=== PATIENT | female | born 1990 | race Asian ===

== ENCOUNTER → 2021-08-31 09:17 | Outpatient (BNVA) | payer OTHER, SELFPAY | PROVIDERS: PCP Internal Medicine; Visit Provider Advanced Practice Midwife | DX: N92.6 Irregular menstruation, unspecified (principal) | CPT/HCPCS: 99212 ==

== ENCOUNTER 2023-05-22 08:50 | Outpatient (AMB) | payer OTHER, SELFPAY ==
[2023-05-22 08:53] VITALS: BP 122/80; PULSE 86; O2SAT 96; BMI 23.7
--- NOTE | 2023-05-22 08:53 | A.OFFPC_ITS ---
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 Accompanied by: Self / Same As Patient Allergies No Known Allergies Allergy (Verified 05/22/23 09:23) Medication List - Last Reconciled 05/22/23 by Chavez Nash MD No Known Home Meds Tobacco use date assessed: 05/22/23 Dental Screening Dental Screen Date: 05/22/23 Did you have a dental visit in the last 12 months?: Yes Did you have a dental problem in the last 6 months where you did not have access to dental care?: No Was dental information given to patient?: Patient has dentist HPI 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 Re-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 Care / Request PE HPI Details Patient comes in today for her annual physical examination and to reestablish care - has not been back since 2018 States that she moved to [place] for a few years and recently decided to move back here to [facility] States that she has been doing well over the years and there has been no significant change to her health and physical condition Recalls that she last had her annual gynecology exam and pap smear done sometime in September 2022 although it looks like she [facility], per her records Relates that she's had some stomach discomfort and nausea for the past couple of days and also has had some mild diarrhea lately - thinks that she may have eaten something recently that did not agree with her but notes that her symptoms felt a lot better this morning and her diarrhea seems to have stopped She denies any headaches or dizziness Denies any chest pains, no SOB No vomiting, no abdominal pain and she denies any acute urinary symptoms PFSH Medical History Pure hypercholesterolemia Surgical History No pertinent past surgical history Social History Housing: House Patient Tobacco Use Status: Never used Tobacco e-Cigarette/Vaping Use: Never Used service: No Current occupational status: employed Current occupational exposures/hazards: No Cognitive needs: No Hearing needs: No Vision needs: No Female Reproductive History Menstrual Age of Menarche: 9 Questionnaire PHQ-9 Over the last 2 weeks, how often have you been bothered by any of the following problems? 1. Little interest or pleasure in doing things: not at all 2. Feeling down, depressed, or hopeless: not at all 3. Trouble falling or staying asleep, or sleeping too much: not at all 4. Feeling tired or having little energy: not at all 5. Poor appetite or overeating: not at all 6. Feeling bad about yourself - or that you are a failure or have let yourself or your family down: not at all 7. Trouble concentrating on things, such as reading the newspaper or watching television: not at all 8. Moving or speaking so slowly that other people could have noticed. Or the opposite - being so fidgety or restless that you have been moving around a lot more than usual: not at all 9. Thoughts that you would be better off or of hurting yourself in some way: not at all Total score: 0 Depression Screening Interpretation: Negative Depression Screening Done: Yes 51551 - PHQ-9 Billing: Yes Source: Developed by Drs. Dakota Ogden, Debi Connolly, Ismael Clarke and colleagues, with an educational tash from [employer]. Thrive Questionnaire Date Thrive assessed: 05/22/23 I am a: Patient What is your living situation today?: I have a steady place to live Within the past 12 months, did the food you bought not last and you didn't have the money to get more?: Never true Within the past 12 months, did you worry whether your food would run out before you got money to buy more?: Never true Do you have trouble paying for medicines?: No Do you have trouble getting transportation to medical appointments?: No Do you have trouble paying your heating and electricity bill?: No Do you have trouble taking care of your child, family member or friend?: No Do you have trouble with day-to-day activities such as bathing, preparing meals, shopping, managing finances, etc.?: No Are you currently unemployed and looking for a job?: No Are you interested in more education?: No Please select the resources that you would like help with: None Currently or been in a relationship where the following occur: no concerns reported AUDIT C Alcohol Use Questionnaire (AUDIT-C) 1. How often do you have a drink containing alcohol?: Never 3. How often do you have six or more drinks on one occasion?: Never Total Score: 0 Score Reviewed/Action Taken: Yes HERIBERTO-7 AMB Questionnaire HERIBERTO-7 Date HERIBERTO - 7 assessed: 05/22/23 Feeling nervous, anxious, or on edge: 0 = Not at all Not being able to stop or control worryin = Not at all Worrying too much about different things: 0 = Not at all Trouble relaxin = Not at all Being so restless that it is hard to sit still: 0 = Not at all Becoming easily annoyed or irritable: 0 = Not at all Feeling afraid as if something awful might happen: 0 = Not at all Total HERIBERTO-7 score (0-4 normal; 5-9 mild; 10-14 moderate; 15-21 severe): 0 Source: Developed by Drs. Dakota Ogden, Debi Connolly, Ismael Clarke and colleagues, with an educational tash from [employer]. Review of Systems Const Denies chills, Denies fatigue, Denies fever(s), Denies headache(s) and Denies malaise Eyes Denies blurry vision, Denies change in vision, Denies irritation and Denies itchy eyes ENT Denies dysphagia, Denies dizziness, Denies otalgia, Denies headache(s), Denies nasal congestion, Denies neck pain, Denies odynophagia, Denies sinus pain and Denies sore throat Card Denies chest pain, Denies rapid heart rate, Denies irregular heart rhythm, Denies palpitations and Denies dyspnea Resp Denies chest congestion, Denies cough, Denies dyspnea and Denies wheezing GI Denies abdominal pain, Denies bloating, Denies constipation, Denies dysphagia, Denies heartburn, Denies diarrhea, Denies nausea, Denies odynophagia and Denies vomiting Denies hematuria, Denies urinary frequency, Denies dysuria, Denies urinary incontinence and Denies urinary urgency Musc Denies back pain, Denies arthralgias, Denies joint swelling, Denies muscle weakness and Denies neck pain Skin/Breast Denies breast pain, Denies breast mass, Denies change in pigmentation, Denies lesions, Denies rash and Denies unusual bruising Neuro Denies dizziness, Denies headache(s) and Denies paresthesias Psych Denies anxiety and Denies depression Endo Denies fatigue and Denies palpitations Jeffy/Lymph Denies easy bruising Aller/Immun Denies itchy eyes and Denies wheezing Physical exam (Primary Care) Vital Signs: Last Vital Signs Pulse 86 05/22/23 08:53 BP 122/80 05/22/23 08:53 Pulse Ox 96 05/22/23 08:53 Oxygen Delivery Method Room Air 05/22/23 08:53 BMI result Body Mass Index 23.7 Tobacco/Smoking Status: Tobacco use Status Tobacco use date assessed 05/22/23 05/22/23 09:00 Patient Tobacco Use Status Never used Tobacco 05/22/23 09:00 e-Cigarette/Vaping Use Never Used 05/22/23 09:00 PHQ-9: PHQ-9 Score PHQ-9: Total score 0 05/22/23 09:40 Depression Screening Interpretation: Negative Thrive Assessment: Date of Thrive Assessment Date Thrive assessed 05/22/23 05/22/23 09:00 Currently or been in a relationship where the following occur: no concerns reported Const General: no acute distress, alert and awake Orientation/consciousness: patient oriented x3 HENMT Head: Yes normocephalic and Yes atraumatic Ears: external ears normal, TM's normal bilaterally and EAC's normal General nose exam: No nasal discharge present Face and sinus: Yes normal facial exam and Yes sinuses nontender Teeth and gingiva: dentition normal Throat: Yes posterior oropharynx normal and Yes tonsils normal (no TP congestion) Eyes Eyelids: Yes eyelids normal Conjunctivae: conjunctivae normal Pupils: Equal, round and reactive pupils present EOM: EOMs intact bilaterally Neck Neck: Yes no lymphadenopathy and Yes supple Thyroid: Thyroid normal Resp Auscultation: clear to auscultation bilaterally, no rales and no wheezes Cardio Rate: regular rate Rhythm: regular rhythm Heart sounds: no murmurs GI Palpation (GI): Soft to palpation, nontender and No hepatosplenomegaly present Auscultation: normal bowel sounds General: Yes no CVA tenderness Back/Spine/Pelvis Back: no CVA tenderness Thoracic/Lumbar Spine: thoracic and lumbar spine normal to inspection Skin Lesions: no lesions Rashes: no rashes Neuro General: patient oriented x3, moves all extremities, no focal motor deficits and CN's II-XI intact bilaterally Cranial nerves: Yes Equal, round and reactive pupils present Cognition (Neuro): normal cognition Gait exam (Neuro): Normal gait present Extrem General: Yes no clubbing, cyanosis or edema Office Procedures Flu Questionnaire Does the patient have a severe egg allergy?: No Does the patient have severe life threatening allergies?: No Does the patient have a fever or illness today?: No Has the patient ever had Guillain-[place] Syndrome?: No Has the patient ever had any past reaction to a flu shot?: No Immunizations flu vacc [id number] 6mos up(PF) 60 mcg(15 mcgx4)/0.5 mL IM syringe Performing Provider: Chavez Nash MD 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 Department Supervisor 0.5 mL IM Left Deltoid 0.5 mL [id number] 01/04/24 89177-112-05 [employer] VIS Given Date VIS Provided VIS Publication Date 05/22/23 Single Vaccine 21 Eligibility Eligibility Date Funding Source Not [facility] Eligible 05/22/23 Private Assessment and Plan Assessment & Plan (1) Annual physical exam: Code(s): Z00.00 - Encounter for general adult medical examination without abnormal findings Plan: Check labs (2) Pure hypercholesterolemia: Code(s): E78.00 - Pure hypercholesterolemia, unspecified Plan: Reinforced low cholesterol diet She is reminded that her LDL cholesterol was slightly elevated and higher than recommended when they were last checked in 2019 Will recheck her fasting lipids for follow up (3) Cervical cancer screening: Code(s): Z12.4 - Encounter for screening for malignant neoplasm of cervix Plan: Based on her records, [facility] early 2021 Will refer her to OB-Test Administrator for her annual pap smear and gynecology exam Plan Follow up in 6 months Orders: Orders UA CC w/rflx Micro + Cult 05/22/23 R30.0 - Dysuria, Z00.00 - Encounter for general adult medical examination without abnormal findings TSH reflex Free T4 05/22/23 E78.00 - Pure hypercholesterolemia, unspecified, Z00.00 - Encounter for general adult medical examination without abnormal findings Influenza [id number] Immunization 05/22/23 Z23 - Encounter for immunization Complete Blood Count Auto Diff 05/22/23 Z00.00 - Encounter for general adult medical examination without abnormal findings Comprehensive [place]. 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
== END 2023-05-22 09:36 | disposition home or self-care (01) ==
PROVIDERS: PCP Internal Medicine; Visit Provider Internal Medicine
DX: Z23 Encounter for immunization (principal)
CPT/HCPCS: 90471; 90686; 99395

== ENCOUNTER 2023-05-22 09:50 | Outpatient (REF) | payer OTHER, SELFPAY ==
[2023-05-22 10:11] LABS: MANUAL DIFF FLAG NO
[2023-05-22 10:26] LABS: Basophils Absolute Auto 0.1 X10*3/uL (0.0-0.2); Basophils Percent Auto 0.7 % (0-2); Eosinophils Absolute Auto 0.1 X10*3/uL (0.0-0.4); Eosinophils Percent Auto 1.7 % (0-4); Hemoglobin 13.4 g/dl (12.0-16.0); Imm Gran Abs Auto 0.04 X10*3/uL (0.00-0.03); Imm Gran Pct Auto 0.5 % (0.0-0.4); Lymphocytes Absolute Auto 1.1 X10*3/uL (1.2-4.9); Lymphocytes Percent Auto 14.6 % (20-40); Mean Corpuscular HGB Conc 32.7 g/dl (31.0-35.0); Mean Corpuscular Hemoglobin 27.3 pg (27.0-33.0); Mean Corpuscular Volume 83.7 fL (80.0-98.0); Mean Platelet Volume 10.1 fL (9.4-12.3); Monocytes Absolute Auto 0.3 X10*3/uL (0.1-1.2); Monocytes Percent Auto 4.4 % (2-11); Neutrophils Absolute Auto 5.8 x10*3/uL (2.0-8.3); Neutrophils Percent Auto 78.1 % (45-73); Platelet Count 293 X10*3/uL (160-400); Red Cell Distribution Width 13.4 % (11.0-16.0); White Blood Count 7.5 X10*3/uL (4.8-10.8)
[2023-05-22 11:02] LABS: Alanine Aminotransferase 14 U/L (0-31); Albumin Level 4.3 g/dL (3.5-5.0); Alkaline Phosphatase 54 U/L (39-117); Anion Gap 11 (12-20); Aspartate Amino Transferase 13 U/L (5-31); Bilirubin Total 0.7 mg/dL (0.0-1.0); Blood Urea Nitrogen 11 mg/dL (9-16); Calcium 9.2 mg/dL (8.4-10.2); Carbon Dioxide 25 mmol/L (22-29); Chloride 107 mmol/L (96-108); Cholesterol 173 mg/dL (<200); Estimated Glomerular Filt Rate > 60; Glucose Fasting 98 mg/dL (60-99); HDL Cholesterol 46 mg/dL (>40); LDL Cholesterol Calculated 114 mg/dL (<100); Potassium 3.8 mmol/L (3.3-5.1); Sodium 139 mmol/L (135-145); Total Protein 7.6 g/dL (6.5-8.0); Triglycerides 66 mg/dL (<150)
[2023-05-22 11:20] LABS: TSH reflex Free T4 0.27 uIU/mL (0.32-4.0); Vitamin D 25-OH Total 25.4 ng/mL (>30)
[2023-05-22 11:48] LABS: Appearance Urine Clear; Color Urine Dark Yellow; Glucose Urine UA Negative (Negative); Leukocyte Esterase Urine Trace (Negative); Nitrite Urine Negative (Negative); Specific Gravity - Urine >= 1.030 (1.005-1.025); UMIC TRIGGER UACC YES; Urine Blood Negative (Negative); Urine Ketones Negative (Negative); Urine Protein Negative (Neg-Trace)
[2023-05-22 11:52] LABS: Bacteria Urine Trace (None Seen); Hyaline Casts Urine 0-2 /LPF (0-2); RBC Urine 0-2 /HPF (0-2); WBC Urine 0-5 /HPF (0-5)
== END 2023-05-22 09:51 | disposition home or self-care (01) ==
LOC: HO.LAB 09:50
PROVIDERS: PCP Internal Medicine; Visit Provider Internal Medicine
DX: Z00.00 Encounter for general adult medical examination without abnormal findings (principal); E78.00 Pure hypercholesterolemia, unspecified; E55.9 Vitamin D deficiency, unspecified
CPT/HCPCS: 36415; 80053; 80061; 81001; 82306; 84439; 84443; 85025

== ENCOUNTER 2023-11-24 09:55 | Outpatient (AMB) | payer OTHER, SELFPAY ==
--- NOTE | 2023-11-24 09:58 | MHC.PC.OV ---
Vital Signs 11/24/23 10:00 Height 5 ft 6 in Weight 145 lb 6 oz BMI 23.5 BP 120/64 Blood Pressure Location Lt brachial Position Sitting Pulse 61 Pulse Source Pulse Oximeter Pulse Oximetry (%) 99 Oxygen Delivery Method Room Air Intake Visit Reasons: 6mth f/u Intake Note: Patient is here to follow up on Hypercholesterolemia. 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: Not Required per policy Accompanied by: Self / Same As Patient Allergies No Known Allergies Allergy (Verified 11/24/23 10:31) Medication List - Last Reconciled 11/24/23 by Chavez Nash MD No Known Home Meds Tobacco use date assessed: 11/24/23 Dental Screening Dental Screen Date: 11/24/23 Did you have a dental visit in the last 12 months?: No Did you have a dental problem in the last 6 months where you did not have access to dental care?: No Was dental information given to patient?: No HPI 6mth f/u HPI Details Patient comes in today for her follow up visit States that she has been experiencing increased allergy symptoms lately - nasal / sinus congestion and drainage, sneezing, watery eyes Has been taking OTC Loratadine 10 mg QD for a while now but does not feel that they are helping much with her symptoms She denies any fever or sore throat She denies any headaches or dizziness Denies any chest pains, no SOB No nausea/vomiting, no abdominal pain No change in bowel habits noted Adds that she has some prominent veins on both of her lower legs that she feels have gotten worse over the past couple of years States that she works at a local [employer] and is often on her feet for hours a day Notes that her legs and feet sometimes feel heavy and tight, especially towards the end of the day States that she has tried wearing some compression stockings recently and they seem to help somewhat but would like to know if there is anything that can be done for her prominent varicose veins to help improve her leg symptoms Would also like to know how she did on her labs done back in May 2023 [facility] Medical History Vitamin D deficiency Allergic rhinitis Pure hypercholesterolemia Surgical History No pertinent past surgical history Social History Housing: House Patient Tobacco Use Status: Never used Tobacco e-Cigarette/Vaping Use: Never Used Second Hand Smoke Exposure: No service: No Current occupational status: employed Current occupational exposures/hazards: No Cognitive needs: No Hearing needs: No Vision needs: No Female Reproductive History Menstrual Age of Menarche: 9 Questionnaire PHQ-9 Over the last 2 weeks, how often have you been bothered by any of the following problems? 1. Little interest or pleasure in doing things: not at all 2. Feeling down, depressed, or hopeless: not at all 3. Trouble falling or staying asleep, or sleeping too much: not at all 4. Feeling tired or having little energy: not at all 5. Poor appetite or overeating: not at all 6. Feeling bad about yourself - or that you are a failure or have let yourself or your family down: not at all 7. Trouble concentrating on things, such as reading the newspaper or watching television: not at all 8. Moving or speaking so slowly that other people could have noticed. Or the opposite - being so fidgety or restless that you have been moving around a lot more than usual: not at all 9. Thoughts that you would be better off or of hurting yourself in some way: not at all Total score: 0 Depression Screening Interpretation: Negative Depression Screening Done: Yes 66124 - PHQ-9 Billing: Yes Source: Developed by Drs. Dakota Ogden, Debi Connolly, Ismael Clarke and colleagues, with an educational tash from [employer]. Thrive Questionnaire Date Thrive assessed: 11/24/23 I am a: Patient What is your living situation today?: I have a steady place to live Within the past 12 months, did the food you bought not last and you didn't have the money to get more?: Never true Within the past 12 months, did you worry whether your food would run out before you got money to buy more?: Never true Do you have trouble paying for medicines?: No Do you have trouble getting transportation to medical appointments?: No Do you have trouble paying your heating and electricity bill?: No Do you have trouble taking care of your child, family member or friend?: No Do you have trouble with day-to-day activities such as bathing, preparing meals, shopping, managing finances, etc.?: No Are you currently unemployed and looking for a job?: No Are you interested in more education?: No Currently or been in a relationship where the following occur: no concerns reported THRIVE Score: 0 AUDIT C Alcohol Use Questionnaire (AUDIT-C) 1. How often do you have a drink containing alcohol?: Never 3. How often do you have six or more drinks on one occasion?: Never Total Score: 0 Score Reviewed/Action Taken: Yes HERIBERTO-7 AMB Questionnaire HERIBERTO-7 Date HERIBERTO - 7 assessed: 11/24/23 Feeling nervous, anxious, or on edge: 0 = Not at all Not being able to stop or control worryin = Not at all Worrying too much about different things: 0 = Not at all Trouble relaxin = Not at all Being so restless that it is hard to sit still: 0 = Not at all Becoming easily annoyed or irritable: 0 = Not at all Feeling afraid as if something awful might happen: 0 = Not at all Total HERIBERTO-7 score (0-4 normal; 5-9 mild; 10-14 moderate; 15-21 severe): 0 Source: Developed by Drs. Dakota Ogden, Debi Connolly, Ismael Clarke and colleagues, with an educational tash from [employer]. Review of Systems Const Denies chills, Denies fatigue, Denies fever(s) and Denies headache(s) ENT Denies dysphagia, Denies dizziness, Denies otalgia, Denies headache(s), Reports nasal discharge, Denies neck pain, Denies odynophagia, Denies sinus pain and Denies sore throat Card Denies chest pain, Denies palpitations and Denies dyspnea Resp Denies cough and Denies dyspnea GI Denies abdominal pain, Denies constipation, Denies dysphagia, Denies heartburn, Denies diarrhea, Denies nausea, Denies odynophagia and Denies vomiting Denies difficulty voiding, Denies nocturia, Denies dysuria and Denies urinary urgency Musc Denies neck pain Skin/Breast Denies rash Neuro Denies dizziness and Denies headache(s) Endo Denies fatigue and Denies palpitations Jeffy/Lymph Details: prominent varicose veins on lower legs with symptoms - see HPI Aller/Immun Reports as per HPI and Reports seasonal rhinorrhea Physical exam (Primary Care) Vital Signs: Last Vital Signs Pulse 61 11/24/23 10:00 BP 120/64 11/24/23 10:00 Pulse Ox 99 11/24/23 10:00 Oxygen Delivery Method Room Air 11/24/23 10:00 BMI result Body Mass Index 23.5 Tobacco/Smoking Status: Tobacco use Status Tobacco use date assessed 11/24/23 11/24/23 10:04 Patient Tobacco Use Status Never used Tobacco 11/24/23 10:04 e-Cigarette/Vaping Use Never Used 11/24/23 10:04 PHQ-9: PHQ-9 Score PHQ-9: Total score 0 11/24/23 10:04 Depression Screening Interpretation: Negative Thrive Assessment: Date of Thrive Assessment Date Thrive assessed 11/24/23 11/24/23 10:04 Currently or been in a relationship where the following occur: no concerns reported Const General: no acute distress and alert HENMT Ears: TM's normal bilaterally and EAC's normal Throat: Yes posterior oropharynx normal and Yes tonsils normal (no TP congestion) Neck Neck: Yes no lymphadenopathy and Yes supple Thyroid: Thyroid normal Resp Auscultation: clear to auscultation bilaterally, no rales and no wheezes Cardio Rate: regular rate Rhythm: regular rhythm Heart sounds: no murmurs GI Palpation (GI): Soft to palpation and nontender Auscultation: normal bowel sounds General: Yes no CVA tenderness Back/Spine/Pelvis Back: no CVA tenderness Skin Rashes: no rashes Extrem Other: (+) small areas of prominent varicosities noted over the proximal lower legs bilaterally General: Yes no clubbing, cyanosis or edema Results Reviewed Results Reviewed: Laboratory Tests 05/22/23 05/22/23 10:00 10:10 WBC 7.5 Hgb 13.4 Hct 41.0 Plt Count 293 Sodium 139 Potassium 3.8 Creatinine 0.72 Estimated GFR > 60 Fasting Glucose 98 Calcium 9.2 AST 13 ALT 14 Triglycerides 66 Cholesterol 173 LDL Cholesterol, Calc 114 H HDL Cholesterol 46 25-OH Vitamin D Total 25.4 L TSH 0.27 L Free T4 1.10 Ur Specific [place] >= 1.030 H Urine Protein Negative Urine Glucose (UA) Negative Urine Blood Negative Urine Nitrite Negative Ur Leukocyte Esterase Trace H Assessment and Plan Assessment & Plan (1) Pure hypercholesterolemia: Code(s): E78.00 - Pure hypercholesterolemia, unspecified Plan: Results of her labs done back in May 2023 reviewed and discussed with patient - she is advised that her cholesterol levels have improved slightly from previous Reinforced low cholesterol diet Will recheck her labs and fasting lipids in 6 months for follow up (2) Varicose veins of bilateral lower extremities with pain: Code(s): I83.813 - Varicose veins of bilateral lower extremities with pain Plan: Per request, will refer her to vascular surgery for further evaluation and management (3) Allergic rhinitis: Code(s): J30.9 - Allergic rhinitis, unspecified Qualifiers: Allergic rhinitis trigger: unspecified Allergic rhinitis seasonality: seasonal Qualified Code(s): J30.2 - Other seasonal allergic rhinitis Plan: Continue OTC Loratadine 10 mg QD although patient feels that this is not helping much Will start her additionally on Budesonide 32 mcg nasal spray 1 to 2 sprays into each nostril QD PRN (4) Vitamin D deficiency: Code(s): E55.9 - Vitamin D deficiency, unspecified Plan: She is also advised that her Vitamin D level was low on her recent labs Have recommended that she start taking some OTC Vitamin D3 1000 units QD Plan To return in 6 months for her next annual physical examination Orders: Orders Thyroid Stimulating Hormone 6 Months R79.89 - Other specified abnormal findings of blood chemistry Complete Blood Count Auto Diff 6 Months D64.9 - Anemia, unspecified, Z00.00 - Encounter for general adult medical examination without abnormal findings Comprehensive [place]. Panel Fast 6 Months E78.00 - Pure hypercholesterolemia, unspecified, Z00.00 - Encounter for general adult medical examination without abnormal findings Free T4 (Free Thyroxine) 6 Months R79.89 - Other specified abnormal findings of blood chemistry Lipid Panel 6 Months E78.00 - Pure hypercholesterolemia, unspecified, Z00.00 - Encounter for general adult medical examination without abnormal findings UA CC w/rflx Micro + Cult 6 Months R30.0 - Dysuria, Z00.00 - Encounter for general adult medical examination without abnormal findings Vitamin D 25-OH Total 6 Months E55.9 - Vitamin D deficiency, unspecified, Z00.00 - Encounter for general adult medical examination without abnormal findings Referrals Vascular Surgery Referral I83.813 - Varicose veins of bilateral lower extremities with pain Medications: New budesonide 32 mcg/actuation administer into each nostril 2 sprays intranasal DAILY PRN 8.43 mL 5RF allergy symptoms Coding Level of Care Code Est Pt Level 4 (84784) Diagnoses Pure hypercholesterolemia E78.00 Varicose veins of bilateral lower extremities with pain I83.813 Seasonal allergic rhinitis, unspecified trigger J30.2 Allergic rhinitis trigger: unspecified Allergic rhinitis seasonality: seasonal Vitamin D deficiency E55.9
[2023-11-24 10:00] VITALS: BP 120/64; PULSE 61; O2SAT 99; BMI 23.5
== END 2023-11-24 10:44 | disposition home or self-care (01) ==
PROVIDERS: PCP Internal Medicine; Visit Provider Internal Medicine
DX: E78.00 Pure hypercholesterolemia, unspecified (principal); I83.813 Varicose veins of bilateral lower extremities with pain; J30.2 Other seasonal allergic rhinitis; E55.9 Vitamin D deficiency, unspecified
CPT/HCPCS: 99214

== ENCOUNTER 2024-07-21 08:32 | Outpatient (REF) | payer OTHER, SELFPAY ==
--- OUTSIDE RECORDS SUMMARY | 2024-07-21 08:47 | XMS_ITS | Continuity of Care Document ---
Author Organization [facility] Address [address] [place] [address] Phone Care Team Providers Care Trim Attacher Name Role Phone Breann ALFONSO, Jasiel Unavailable Unavailable Advance Directives Directive Yes / No Effective Date File Name No Information Encounters Encounter Description Practice Location Reason(s) For Visit Diagnoses Date Provider Providers Copied on Encounter [place] [facility], [address], [place], [id number], [place] tel:[phone] [place] [facility] No Information 4 Breann Weathers. [address] [facility] [address], [place], [address], [place]. tel:[phone] Family History Family Member Type Diagnosis Age At Onset No Information Payers Payer name Insurance type Covered constitution party ID Authoriza tion(s) No Information Social History [...]
--- OUTSIDE RECORDS SUMMARY | 2024-07-21 08:47 | XMS_ITS | Continuity of Care Document ---
Author Organization [facility] Address [address] [place] [address] Phone Care Team Providers Care Pharmacy Buyer Name Role Phone Nathaniel ALFONSO, RVRianna, AMBER, Dakota Unavailable U navailable Allergies, Adverse Reactions, Alerts Substance Reaction Status Criticality No Known Allergies Active No Inform ation Procedures Procedure Date Duplex Scan-extrem Veins; Uni/ CT & [place] J Endovenous Laser, 1st Vein- CT & [place] Ultrason Guidan Needle Bx-rad- CT & MA J Inj Sclerosing Solution; Sngl- CT & [place] J Duplex Scan-extrem Veins; Uni/ CT & [place] J Endovenous Laser, 1st Vein- CT & [place] Inj Scleros Solut; Mx Veins 1- CT & MA J Ultrason Guidan Needle Bx-rad- CT & [place] J No Charge For Services Duplex Scan-extrem Veins; Comp- CT & [place] Advance Directives Directive Yes / No Effective Date File Name No Information Encounters Encounter Description Practice Location Reason(s) For Visit Diagnoses Date Provider Providers Copied on Encounter [facility], [address] [place] [address] [address], [id number], [place] tel:[phone] [facility] Encounter for follow-up examination after completed treatment for conditions other than malignant nePain in left leg 4 Nathaniel ALFONSO RVT, RPVI Robert. [address], [address], [place], [id number] , [place]. [phone] Referring Provider: Dakota Armstrong MD, RVT, AMBER, [address], [place], [address] . tel:[phone] [place] [facility], [address] [place] [address] [address], [id number], [place] tel:[phone] CV[facility] - [place] - [place] Varicose veins of left lower extremity with other complications 4 Nathaniel ALFONSO RVT, RPVI Robert. [address] [place] [address], [address], [place], [id number] , [place]. [phone] Referring Provider: Dakota Armstrong MD, RVT, RPVI, [address] [place] [address] [address], [place], [address] . tel:[phone] [place] [facility], [address] [place] [address] [address], [id number], [place] tel:[phone] [facility] - [place] - [place] Encounter for follow-up examination after completed treatment for conditions other than malignant ne 4 Nathaniel ALFONSO RVT, RPVI Robert. [facility], [address], [place], [id number] , [place]. [phone] Referring Provider: Dakota Armstrong MD, RVT, RPVI, [facility] [address], [place], [address] . tel:[phone] [place] [facility], [address] [place] [address] [address], [id number], [place] tel:[phone] [facility] - [place] Varicose veins of right lower extremity with other complications 4 Nathaniel ALFONSO RVT, RPVI Robert. [address], [address], [place], [id number] , [place]. tel:[phone] [place] [facility], [address] [place] [address] [address], [id number], tel:[phone] [facility] No Information 4 Nathaniel ALFONSO RVT, AMBER Duncan. [address] [place] [address], [facility] [place] [id number] , [place]. [phone] [place] [facility], [address] [place] [address] [address], [id number], tel:[phone] CVR - [facility] Chronic venous hypertension (idiopathic) with other complications of bilateral lower extremityPain in right legPain in left legRestless legs syndromeVenous insufficiency (chronic) (peripheral) 4 Nathaniel ALFONSO RVT, AMBER Duncan. [address] [place] [address], [facility] [place], [id number] , [place]. [phone] [place] [facility], [address] [place] [address] [address], [id number], tel:[phone] CVR - [facility] Chronic venous hypertension (idiopathic) with other complications of bilateral lower extremity 4 Nathaniel ALFONSO RVT, RPVI Robert. [address] [place] [address], [facility] [place], [id number] , [place]. tel:[phone] Referring Provider: Dakota Armstrong MD, RVT, AMBER, [address] [place] [address], [place], [address] . tel:[phone] Family History Family Member Type Diagnosis Age At Onset No Information Payers Payer name Insurance type Covered alliance party ID Authoriza tion(s) No Information Social History Type Description Quantity Date Captured Comments Sex Female Smoking Status No Information Chief Complaint And Reason For Visit No Information Reason For Referral Reason For Referral No Information Plan Of Treatment Date Type Action Status Goal Diet education completed Referral Ordered: Weight management: Referral to physician timeframe: 3 Months (related to Body mass index (BMI) 23.0-23.9, adult) ordered History Of Present Illness Encounter Date Complaint History Of Prese nt Illness No Information Functional Status Date Functional Assessmen t No Information Instructions Date Instruction Additional Infor gila Diet education Related to Body mass index (BMI) 23.0-23.9, adult Giving Encouragement to exercise Related to Body mass index (BMI) 23.0-23.9, adult Lifestyle education Related to B nicole mass index (BMI) 23.0-23.9, adult Patient education booklet given Related to Chronic venous hypertension (idiopathic) with other complications of bilateral lower extremity Pre and post instruc tions reviewed and provided Related to Chronic venous hypertension (idiopathic) with other complications of bilateral lower extremity Assessments Type Assessment Date No Information Patient Care Teams Name Effective Dates (start - stop) Status Members No Information
[2024-07-21 09:04] LABS: MANUAL DIFF FLAG NO
[2024-07-21 09:31] LABS: Basophils Absolute Auto 0.1 X10*3/uL (0.0-0.2); Basophils Percent Auto 0.9 % (0-2); Eosinophils Absolute Auto 0.2 X10*3/uL (0.0-0.4); Eosinophils Percent Auto 2.2 % (0-4); Hematocrit 38.9 % (37.0-47.0); Hemoglobin 12.8 g/dl (12.0-16.0); Imm Gran Abs Auto 0.04 X10*3/uL (0.00-0.03); Imm Gran Pct Auto 0.4 % (0.0-0.4); Lymphocytes Absolute Auto 1.9 X10*3/uL (1.2-4.9); Lymphocytes Percent Auto 18.4 % (20-40); Mean Corpuscular HGB Conc 32.9 g/dl (31.0-35.0); Mean Corpuscular Hemoglobin 26.9 pg (27.0-33.0); Mean Corpuscular Volume 81.9 fL (80.0-98.0); Mean Platelet Volume 9.4 fL (9.4-12.3); Monocytes Absolute Auto 0.6 X10*3/uL (0.1-1.2); Monocytes Percent Auto 5.6 % (2-11); Neutrophils Absolute Auto 7.6 x10*3/uL (2.0-8.3); Neutrophils Percent Auto 72.5 % (45-73); Platelet Count 337 X10*3/uL (160-400); Red Blood Count 4.75 X10*6/uL (4.20-5.50); Red Cell Distribution Width 12.1 % (11.0-16.0); White Blood Count 10.5 X10*3/uL (4.8-10.8)
[2024-07-21 09:43] LABS: Appearance Urine Clear; Color Urine Yellow; Glucose Urine UA Negative (Negative); Leukocyte Esterase Urine Negative (Negative); Nitrite Urine Negative (Negative); PH 7.5 (5.0-9.0); Specific Gravity - Urine <= 1.005 (1.005-1.025); Urine Blood Negative (Negative); Urine Ketones Negative (Negative); Urine Protein Negative (Neg-Trace)
[2024-07-21 10:16] LABS: Alanine Aminotransferase 11 U/L (0-31); Alkaline Phosphatase 64 U/L (39-117); Anion Gap 10 (12-20); Aspartate Amino Transferase 15 U/L (5-31); Bilirubin Total 0.5 mg/dL (0.0-1.0); Blood Urea Nitrogen 8 mg/dL (9-16); Calcium 8.6 mg/dL (8.4-10.2); Carbon Dioxide 25 mmol/L (22-29); Chloride 109 mmol/L (96-108); Cholesterol 178 mg/dL (<200); Estimated Glomerular Filt Rate > 60; Glucose Fasting 95 mg/dL (60-99); HDL Cholesterol 38 mg/dL (>40); LDL Cholesterol Calculated 128 mg/dL (<100); Potassium 3.8 mmol/L (3.3-5.1); Sodium 140 mmol/L (135-145); Total Protein 7.5 g/dL (6.5-8.0); Triglycerides 64 mg/dL (<150)
[2024-07-21 10:23] LABS: Free T4 (Free Thyroxine) 1.13 ng/dL (0.71-1.85); Thyroid Stimulating Hormone 0.33 uIU/mL (0.32-4.0); Vitamin D 25-OH Total 20.7 ng/mL (>30)
== END 2024-07-21 08:33 | disposition home or self-care (01) ==
LOC: HO.LAB 08:32
PROVIDERS: PCP Internal Medicine; Visit Provider Internal Medicine
DX: Z00.00 Encounter for general adult medical examination without abnormal findings (principal); E78.00 Pure hypercholesterolemia, unspecified; R30.0 Dysuria; E55.9 Vitamin D deficiency, unspecified; R79.89 Other specified abnormal findings of blood chemistry; D64.9 Anemia, unspecified
CPT/HCPCS: 36415; 80053; 80061; 81003; 82306; 84439; 84443; 85025

== ENCOUNTER 2024-07-27 13:42 | Outpatient (AMB) | payer OTHER, SELFPAY ==
[2024-07-27 13:56] VITALS: BP 118/80; PULSE 96; O2SAT 97; BMI 24.7
--- NOTE | 2024-07-27 13:56 | MHC.PC.OV ---
Vital Signs 07/27/24 13:56 Height 5 ft 6 in Weight 153 lb BMI 24.7 BP 118/80 Blood Pressure Location Lt brachial Position Sitting Pulse 96 Pulse Source Pulse Oximeter Pulse Oximetry (%) 97 Oxygen Delivery Method Room Air Intake Visit Reasons: annual exam Intake Note: Patient here for a physical exam Biofuels Product Manager Required: No Accompanied by: Self / Same As Patient Allergies No Known Allergies Allergy (Verified 07/27/24 14:34) Medication List - Last Reconciled 07/27/24 by Chavez Nash MD budesonide 32 mcg/actuation 2 sprays intranasal DAILY PRN Tobacco use date assessed: 07/27/24 Dental Screening Dental Screen Date: 07/27/24 Did you have a dental visit in the last 12 months?: Yes Did you have a dental problem in the last 6 months where you did not have access to dental care?: No Was dental information given to patient?: Patient has dentist HPI annual exam HPI Details Patient comes in today for her annual physical examination States that she currently feels okay Relates that she was sick with increased cough/congestion and respiratory symptoms a few weeks ago that lasted for a while Adds that she ran a low grade fever for a couple of days when her symptoms started Relates also increased coughing that was worse at night - states that she could hardly get any sleep for several days in a row as she was up all night coughing She went to a local walk-in clinic in [place] a couple of weeks ago and was prescribed some medications to help with her symptoms but states that it still took a while before her symptoms all gradually cleared up States that her cough also finally cleared up/subsided a couple of days ago and she now has no further issues or problems She denies any headaches or dizziness Denies any chest pains, no SOB No nausea/vomiting, no abdominal pain No change in bowel habits noted She denies any acute urinary symptoms States that she last saw gynecology at a facility in [place] a couple of years ago and will need a new referral - states that she has been seen here at [facility] before and has no problem if she is referred back here She had her follow up labs done last week - to discuss her results [facility] Medical History Vitamin D deficiency Allergic rhinitis Pure hypercholesterolemia Surgical History No pertinent past surgical history Social History Housing: House Patient Tobacco Use Status: Never used Tobacco e-Cigarette/Vaping Use: Never Used Second Hand Smoke Exposure: No service: No Current occupational status: employed Current occupational exposures/hazards: No Cognitive needs: No Hearing needs: No Vision needs: No Female Reproductive History Menstrual Age of Menarche: 9 Questionnaire PHQ-9 Over the last 2 weeks, how often have you been bothered by any of the following problems? 1. Little interest or pleasure in doing things: not at all 2. Feeling down, depressed, or hopeless: not at all 3. Trouble falling or staying asleep, or sleeping too much: not at all 4. Feeling tired or having little energy: not at all 5. Poor appetite or overeating: not at all 6. Feeling bad about yourself - or that you are a failure or have let yourself or your family down: not at all 7. Trouble concentrating on things, such as reading the newspaper or watching television: not at all 8. Moving or speaking so slowly that other people could have noticed. Or the opposite - being so fidgety or restless that you have been moving around a lot more than usual: not at all 9. Thoughts that you would be better off or of hurting yourself in some way: not at all Total score: 0 Depression Screening Interpretation: Negative Depression Screening Done: Yes 18960 - PHQ-9 Billing: Yes Source: Developed by Drs. Dakota Ogden, Debi Connolly, Ismael Clarke and colleagues, with an educational tash from [facility]. Thrive Questionnaire Date Thrive assessed: 07/26/24 I am a: Patient What is your living situation today?: I have a steady place to live Within the past 12 months, did the food you bought not last and you didn't have the money to get more?: Never true Within the past 12 months, did you worry whether your food would run out before you got money to buy more?: Never true Do you have trouble paying for medicines?: No Do you have trouble getting transportation to medical appointments?: No Do you have trouble paying your heating and electricity bill?: No Do you have trouble taking care of your child, family member or friend?: No Do you have trouble with day-to-day activities such as bathing, preparing meals, shopping, managing finances, etc.?: No Are you currently unemployed and looking for a job?: No Are you interested in more education?: No Please select the resources that you would like help with: None Currently or been in a relationship where the following occur: No concerns reported THRIVE Score: 0 AUDIT C Alcohol Use Questionnaire (AUDIT-C) 1. How often do you have a drink containing alcohol?: Never 3. How often do you have six or more drinks on one occasion?: Never Total Score: 0 Score Reviewed/Action Taken: Yes HERIBERTO-7 AMB Questionnaire HERIBERTO-7 Date HERIBERTO - 7 assessed: 07/27/24 Feeling nervous, anxious, or on edge: 0 = Not at all Not being able to stop or control worryin = Not at all Worrying too much about different things: 0 = Not at all Trouble relaxin = Not at all Being so restless that it is hard to sit still: 0 = Not at all Becoming easily annoyed or irritable: 0 = Not at all Feeling afraid as if something awful might happen: 0 = Not at all Total HERIBERTO-7 score (0-4 normal; 5-9 mild; 10-14 moderate; 15-21 severe): 0 Source: Developed by Drs. Dakota Ogden, Debi Connolly, Ismael Clarke and colleagues, with an educational tash from [facility]. Review of Systems Const Denies chills, Denies fatigue, Denies fever(s), Denies headache(s) and Denies malaise Eyes Denies blurry vision, Denies change in vision, Denies irritation and Denies itchy eyes ENT Denies dysphagia, Denies dizziness, Denies otalgia, Denies headache(s), Denies nasal congestion, Denies neck pain, Denies odynophagia, Denies sinus pain and Denies sore throat Card Denies chest pain, Denies rapid heart rate, Denies irregular heart rhythm, Denies palpitations and Denies dyspnea Resp Denies chest congestion, Denies cough, Denies dyspnea and Denies wheezing GI Denies abdominal pain, Denies bloating, Denies constipation, Denies dysphagia, Denies heartburn, Denies diarrhea, Denies nausea, Denies odynophagia and Denies vomiting Denies hematuria, Denies urinary frequency, Denies dysuria, Denies urinary incontinence and Denies urinary urgency Musc Denies back pain, Denies arthralgias, Denies joint swelling, Denies muscle weakness and Denies neck pain Skin/Breast Denies breast pain, Denies breast mass, Denies change in pigmentation, Denies lesions, Denies rash and Denies unusual bruising Neuro Denies dizziness, Denies headache(s) and Denies paresthesias Psych Denies anxiety and Denies depression Endo Denies fatigue and Denies palpitations Jeffy/Lymph Denies easy bruising Aller/Immun Denies itchy eyes and Denies wheezing Physical exam (Primary Care) Vital Signs: Last Vital Signs Pulse 96 07/27/24 13:56 BP 118/80 07/27/24 13:56 Pulse Ox 97 07/27/24 13:56 Oxygen Delivery Method Room Air 07/27/24 13:56 BMI result Body Mass Index 24.7 Tobacco/Smoking Status: Tobacco use Status Tobacco use date assessed 07/27/24 07/27/24 14:02 Patient Tobacco Use Status Never used Tobacco 07/27/24 14:02 e-Cigarette/Vaping Use Never Used 07/27/24 14:02 PHQ-9: PHQ-9 Score PHQ-9: Total score 0 07/27/24 14:42 Depression Screening Interpretation: Negative Thrive Assessment: Date of Thrive Assessment Date Thrive assessed 07/26/24 07/27/24 14:02 Currently or been in a relationship where the following occur: No concerns reported Const General: no acute distress, alert and awake Orientation/consciousness: patient oriented x3 HENMT Head: Yes normocephalic and Yes atraumatic Ears: external ears normal, TM's normal bilaterally and EAC's normal General nose exam: No nasal discharge present Face and sinus: Yes normal facial exam and Yes sinuses nontender Teeth and gingiva: dentition normal Throat: Yes posterior oropharynx normal and Yes tonsils normal (no TP congestion) Eyes Eyelids: Yes eyelids normal Conjunctivae: conjunctivae normal Pupils: Equal, round and reactive pupils present EOM: EOMs intact bilaterally Neck Neck: Yes supple and No lymphadenopathy Thyroid: Thyroid normal Resp Auscultation: clear to auscultation bilaterally, no rales and no wheezes Cardio Rate: regular rate Rhythm: regular rhythm Heart sounds: no murmurs GI Palpation (GI): Soft to palpation, nontender and No hepatosplenomegaly present Auscultation: normal bowel sounds General: Yes no CVA tenderness Back/Spine/Pelvis Back: no CVA tenderness Thoracic/Lumbar Spine: thoracic and lumbar spine normal to inspection Skin Lesions: no lesions Rashes: no rashes Neuro General: patient oriented x3, moves all extremities, no focal motor deficits and CN's II-XI intact bilaterally Cranial nerves: Yes Equal, round and reactive pupils present Cognition (Neuro): normal cognition Gait exam (Neuro): Normal gait present Extrem General: Yes no clubbing, cyanosis or edema Results Reviewed Results Reviewed: Laboratory Tests 07/21/24 07/21/24 09:00 09:02 WBC 10.5 Hgb 12.8 Hct 38.9 Plt Count 337 Sodium 140 Potassium 3.8 Creatinine 0.67 Estimated GFR > 60 Fasting Glucose 95 Calcium 8.6 D AST 15 ALT 11 Triglycerides 64 Cholesterol 178 LDL Cholesterol, Calc 128 H HDL Cholesterol 38 L 25-OH Vitamin D Total 20.7 L TSH 0.33 Free T4 1.13 Ur Specific [place] <= 1.005 Urine Protein Negative Urine Glucose (UA) Negative Urine Blood Negative Urine Nitrite Negative Ur Leukocyte Esterase Negative Coding Level of Care Code Est Pt Prev Care 18-39y(91780) Diagnoses Annual physical exam Z00.00 Pure hypercholesterolemia E78.00 Varicose veins of bilateral lower extremities with pain I83.813 Vitamin D deficiency E55.9 Seasonal allergic rhinitis, unspecified trigger J30.2 Allergic rhinitis trigger: unspecified Allergic rhinitis seasonality: seasonal Cervical cancer screening Z12.4 Additional Codes PHQ-9 - 05805 - PHQ-9 Billing: Yes ([id number]) Assessment & Plan Assessment & Plan (1) Annual physical exam: Code(s): Z00.00 - Encounter for general adult medical examination without abnormal findings Category: Medical Plan: Results of her labs done last week reviewed and discussed with patient She is past due for her annual gynecology exam and pap smear and will be referred here to the [facility] for this (2) Pure hypercholesterolemia: Code(s): E78.00 - Pure hypercholesterolemia, unspecified Category: Medical Plan: Patient is advised that her cholesterol levels are still within normal range but they have increased slightly from previous and her LDL cholesterol is now at 128 mg/dl (was at 114 mg/dl last year) Reinforced low cholesterol diet (3) Varicose veins of bilateral lower extremities with pain: Code(s): I83.813 - Varicose veins of bilateral lower extremities with pain Category: Medical Plan: Follow up with vascular surgery as scheduled (4) Vitamin D deficiency: Code(s): E55.9 - Vitamin D deficiency, unspecified Category: Medical Plan: She is advised that her Vitamin D level is still low and she should continue taking OTC Vitamin D3 2000 units QD (5) Allergic rhinitis: Code(s): J30.9 - Allergic rhinitis, unspecified Category: Medical Qualifiers: Allergic rhinitis trigger: unspecified Allergic rhinitis seasonality: seasonal Qualified Code(s): J30.2 - Other seasonal allergic rhinitis Plan: Continue Nasacort nasal spray 32 mcg 2 sprays into each nostril QD PRN (6) Cervical cancer screening: Code(s): Z12.4 - Encounter for screening for malignant neoplasm of cervix Category: Medical Plan: Will refer her to the [facility] to get her annual gynecology exam and pap smear updated Plan To return in 1 year for her next annual physical examination Reminded patient again to get her labs done (ordered) a week or two before her next annual PE Orders: Orders Hepatitis B,C Profile 1 Year Z20.5 - Contact with and (suspected) exposure to viral hepatitis Complete Blood Count Auto Diff 1 Year D64.9 - Anemia, unspecified, Z00.00 - Encounter for general adult medical examination without abnormal findings Comprehensive [place]. Panel Fast 1 Year E78.00 - Pure hypercholesterolemia, unspecified, Z00.00 - Encounter for general adult medical examination without abnormal findings Lipid Panel 1 Year E78.00 - Pure hypercholesterolemia, unspecified, Z00.00 - Encounter for general adult medical examination without abnormal findings TSH reflex Free T4 1 Year E78.00 - Pure hypercholesterolemia, unspecified, Z00.00 - Encounter for general adult medical examination without abnormal findings UA CC w/rflx Micro + Cult 1 Year R30.0 - Dysuria, Z00.00 - Encounter for general adult medical examination without abnormal findings Vitamin D 25-OH Total 1 Year E55.9 - Vitamin D deficiency, unspecified, Z00.00 - Encounter for general adult medical examination without abnormal findings Referrals LADIES SUIT OPERATOR Referral Z12.4 - Encounter for screening for malignant neoplasm of cervix
== END 2024-07-27 14:32 | disposition home or self-care (01) ==
PROVIDERS: PCP Internal Medicine; Visit Provider Internal Medicine
DX: Z00.00 Encounter for general adult medical examination without abnormal findings (principal); E78.00 Pure hypercholesterolemia, unspecified; I83.813 Varicose veins of bilateral lower extremities with pain; E55.9 Vitamin D deficiency, unspecified; J30.2 Other seasonal allergic rhinitis; Z12.4 Encounter for screening for malignant neoplasm of cervix

== ENCOUNTER → 2024-07-27 13:42 | Outpatient (BNVA) | payer OTHER, SELFPAY | PROVIDERS: PCP Internal Medicine; Visit Provider Internal Medicine | DX: Z00.00 Encounter for general adult medical examination without abnormal findings (principal); E78.00 Pure hypercholesterolemia, unspecified; I83.813 Varicose veins of bilateral lower extremities with pain; E55.9 Vitamin D deficiency, unspecified; J30.2 Other seasonal allergic rhinitis | CPT/HCPCS: 96127; 99395 ==

== ENCOUNTER 2024-11-15 13:16 | Outpatient (REF) | payer OTHER, SELFPAY ==
--- OUTSIDE RECORDS SUMMARY | 2024-11-15 15:11 | XMS_ITS | Continuity of Care Document ---
Author Organization [facility] Address [address] [place] [address] Phone Care Team Providers Care Alteration Workroom Supervisor Name Role Phone Nathaniel ALFONSO, RVRianna, AMBER, [...] Providers Copied on Encounter [facility], [address] [place] [address] [address], [id number], [place] tel:[phone] [facility] Encounter for follow-up examination after completed treatment for conditions other than malignant nePain in left leg 4 Nathaniel ALFONSO RVT, RPVI Robert. [address] [facility], [address], [place], [id number] , [place]. [phone] Referring Provider: Dakota Armstrong MD, RVT, AMBER, [address] [facility] [address] [facility] [address], [place], [address] . tel:[phone] [place] [facility], [address] [place] [address] Dr [address], [id number], [place] tel:[phone] [facility] - [place] Varicose veins of left lower extremity with other complications 4 Nathaniel ALFONSO RVT, RPVI Robert. [address] [place] [address], [address], [place], [id number] , [place]. [phone] Referring Provider: Dakota Armstrong MD, RVT, RPVI, [address] [place] [address] [address], [place], [address] . tel:[phone] [facility] [facility], [address] [place] [address] [address], [id number], [place] tel:[phone] [facility] - [place] Encounter for follow-up examination after completed treatment for conditions other than malignant ne 4 Nathaniel ALFONSO RVT, RPVI Robert. [facility] [facility], [address], [place], [id number] , [place]. [phone] Referring Provider: Dakota Armstrong MD, RVT, RPVI, [facility] [address], [place], [address] . tel:[phone] [place] [facility], [address] [place] [address] [address], [id number], [place] tel:[phone] [facility] [place] Varicose veins of right lower extremity with other complications 4 Nathaniel ALFONSO RVT, RPVI Robert. [address] [facility], [address], [place], [id number] , [place]. tel:[phone] [place] [facility], [address] [place] [address] [address], [id number], tel:[phone] [facility] - [place] No Information 4 Nathaniel ALFONSO RVT, AMBER Duncan. [address] [place] [address], [facility] [place], [id number] , [place]. [phone] [place] [facility], [address] [place] [address] [address], [id number], tel:[phone] CVR - [facility] Chronic venous hypertension (idiopathic) with other complications of bilateral lower extremityPain in right legPain in left legRestless legs syndromeVenous insufficiency (chronic) (peripheral) 4 Nathaniel ALFONSO RVT, AMBER Duncan. [address] [place] [address], [facility] [place], [id number] , [place]. [phone] [place] [facility], [address] [place] [address] [address], [id number], tel:[phone] CVR - [facility] Chronic venous hypertension (idiopathic) with other complications of bilateral lower extremity 4 Nathaniel ALFONSO RVT, RPVI Robert. [address] [place] [address], [facility] [place], [id number] , [place]. tel:[phone] Referring Provider: Dakota Armstrong MD, RVT, AMBER, [address] [place] [address], [facility] [place], [address] . tel:[phone] Family History Family Member Type Diagnosis Age At Onset No Information Payers Payer name Insurance type Covered democrat ID Authoriza tion(s) No Information Social History [...]
--- OUTSIDE RECORDS SUMMARY | 2024-11-15 15:11 | XMS_ITS | Continuity of Care Document ---
Author Organization [facility] Address [address] [place] [address] Phone Care Team Providers Care Leather Cartridge Belt Maker Name Role Phone Breann ALFONSO, Jasiel Unavailable Unavailable Advance Directives Directive Yes / No Effective Date File Name No Information Encounters Encounter Description Practice Location Reason(s) For Visit Diagnoses Date Provider Providers Copied on Encounter [facility], [address], [place], [id number], [place] tel:[phone] [facility] [facility] No Information Breann Weathers. [address], [place], [address], [place]. tel:[phone] Family History Family Member Type Diagnosis Age At Onset No Information Payers Payer name Insurance type Covered green party ID Authoriza tion(s) No Information Social [...]
[2024-11-18 13:58] LABS: HPV Genotype 16 Negative (Negative); HPV Genotype 18 Negative (Negative); HPV High Risk Positive (Negative)
== END 2024-11-15 13:17 | disposition home or self-care (01) ==
LOC: HO.LNP 13:16
PROVIDERS: PCP Internal Medicine; Visit Provider Advanced Practice Midwife
DX: Z01.419 Encounter for gynecological examination (general) (routine) without abnormal findings (principal)
CPT/HCPCS: 87626; 88175; 99395; 99459

== ENCOUNTER 2024-11-15 13:16 | Outpatient (AMB) | payer OTHER, SELFPAY ==
[2024-11-15 13:32] VITALS: BP 90/60; BMI 24.2
--- NOTE | 2024-11-15 13:32 | MHC.OFFVIS ---
Vital Signs 11/15/24 13:32 Height 5 ft 6 in Weight 150 lb 3 oz BMI 24.2 BP 90/60 Blood Pressure Location Lt brachial Position Sitting Intake Visit Reasons: annual Quality Control Checker Required: No Quality Control Checker Services: Quality Control Checker Offered & Declined Pediatric Physician: Pediatric Physician Present (Tara) Allergies No Known Allergies Allergy (Verified 07/27/24 14:34) Medication List - Last Reconciled 11/15/24 by Tara Hill LPN budesonide 32 mcg/actuation 2 sprays intranasal DAILY PRN cholecalciferol (vitamin D3) 25 mcg PO DAILY Is last menstrual period known: Yes (11/11/24) Last menstrual period: 11/11/24 Post menopausal: No Patient : No Do you need a note to return to daycare/school/sports/work: No HPI HPI annual: Details: 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 She did not remember being here before but she did have a visit with another provider 3 years ago. She said she has gone back and forth between here and [place] for healthcare needs she had though she does see Dr. Nash for primary healthcare she does not have any major health problems she has no concerns about control and uses condoms with her and she is happy with that she has no concerns whatsoever about STDs either. She has 2 children that she delivered in [place] in hospital in [place]. Her last menstrual periods started about the 8th and is still finishing. [facility] Medical History Vitamin D deficiency Allergic rhinitis Pure hypercholesterolemia Surgical History No pertinent past surgical history Social History Housing: House Patient Tobacco Use Status: Never used Tobacco e-Cigarette/Vaping Use: Never Used Second Hand Smoke Exposure: No service: No Current occupational status: employed Current occupational exposures/hazards: No Cognitive needs: No Hearing needs: No Vision needs: No Female Reproductive History Menstrual Age of Menarche: 9 Date of last menstrual period: 11/11/24 control method: other Total pregnancies: 3 Full term: 2 Number of Living Children: 2 Ab spontaneous: 1 History of abnormal pap smear: No History of STI: No Physical Exam Vital Signs: Last Vital Signs BP 90/60 11/15/24 13:32 BMI result Body Mass Index 24.2 Const Other: Patient has multiple varicose veins throughout her legs they are not swollen. General: healthy appearing, comfortable, no acute distress, well developed and alert Nutritional Appearance: average body habitus Orientation/consciousness: patient oriented x3 Limitations: no limitations HEENT Head: Yes normocephalic Neck Neck: Yes normal visual inspection Chest Chest palpation & inspection: normal inspection of the chest Breast/axilla inspection: normal inspection of the breasts and normal inspection of the axillae Breast/axilla palpation: normal palpation of the breasts and normal palpation of the axillae Resp Effort & Inspection: normal respiratory effort GI Inspection: Yes normal to inspection, No Abdominal wall edema and No distended Palpation (GI): Soft to palpation and nontender Other: Normal external exam vagina is pink and moist with end of menses cervix multiparous pink smooth healthy appearing with normal end of menses cervix slightly friable with Pap but within normal limits cervix long close thick mobile nontender. Uterus is midposition to anteverted mobile and nontender adnexa nontender. Patient had fairly weak tone with Kegel but was able to strengthen it with each successive practice Kegel. General: Yes bladder normal to palpation External Female Exam: normal external appearance and normal appearance of the urethra Speculum Exam - Vagina: normal appearance of the vagina, normal palpation and normal vaginal discharge Speculum Exam - Cervix: normal appearance of the cervix, normal palpation and nontender Bimanual exam- vagina & uterus: normal bimanual exam, normal palpation, uterine size normal, bladder normal to palpation, consistency normal, normal palpation, uterine mobility normal, uterine shape normal, No Cervical tenderness present, non-tender and no cervical motion tenderness Bimanual Exam- Adnexa, other: normal adnexae, no masses, normal and No adnexal tenderness Neuro General: patient oriented x3 Assessment & Plan Assessment & Plan (1) Cervical cancer screening: Code(s): Z12.4 - Encounter for screening for malignant neoplasm of cervix Category: Medical (2) Varicose veins of bilateral lower extremities with pain: Comment: Patient is aware of using support stockings. Discussed recommend moving legs frequently when standing at work. Code(s): I83.813 - Varicose veins of bilateral lower extremities with pain Category: Medical (3) Well woman exam with routine gynecological exam: Code(s): Z01.419 - Encounter for gynecological examination (general) (routine) without abnormal findings Category: Medical (4) Pelvic floor weakness: Comment: Instructed on doing Kegel's throughout the day patient practiced with increasing strength each time at visit. Code(s): N81.89 - Other female genital prolapse Category: Medical (5) Uses condoms as primary control method: Code(s): Z78.9 - Other specified health status Category: Social Hx Plan -----Discussed in this visit the following: healthy balanced diet, regular and consistent exercise, getting recommended health screens, doing the best she can for her particular health concerns, kegel exercises, pap smear screening and followup recommendations, mammography screening and SBE, normal changes in cycles in her life stage--- . We discussed her varicose veins she has been told the wearing support stockings and she has worn them they can be uncomfortable. Discussed that they are not very very swollen. 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 The good thing is she is not overweight and she is healthy otherwise. 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 She is happy with condoms and she has absolutely no concerns about STIs and declines testing Pap smear was done she did not know when it was done before as she goes back and forth between here and [place] for [facility] sometimes\. Reviewed the breast cancer screening with mammograms will start at age 40 breast exam within normal limits today. Coding Level of Care Code Est Pt Prev Care 18-39y(81365) Diagnoses Cervical cancer screening Z12.4 Varicose veins of bilateral lower extremities with pain I83.813 Well woman exam with routine gynecological exam Z01.419 Pelvic floor weakness N81.89 Uses condoms as primary control method Z78.9
--- OUTSIDE RECORDS SUMMARY | 2024-11-15 13:35 | XMS_ITS | Continuity of Care Document ---
Author Organization [facility] Address [address] [place] [address] Phone Care Team Providers Care Change Advisor Name Role Phone Nathaniel ALFONSO, RVRianna, AMBER, [...] Providers Copied on Encounter [facility], [address] [place] [address] [address], [id number], [place] tel:[phone] [facility] Encounter for follow-up examination after completed treatment for conditions other than malignant nePain in left leg 4 Nathaniel ALFONSO RVT, RPVI Robert. [address] [facility], [address], [place], [id number] , [place]. [phone] Referring Provider: Dakota Armstrong MD, RVT, AMBER, [address] [facility] [address], [place], [address] . tel:[phone] [place] [facility], [address] [place] [address] Dr [address], [id number], [place] tel:[phone] [facility] - [place] Varicose veins of left lower extremity with other complications 4 Nathaniel ALFONSO RVT, RPVI Robert. [address] [place] [address], [address], [place], [id number] , [place]. [phone] Referring Provider: Dakota Armstrong MD, RVT, RPVI, [address] [place] [address] [address], [place], [address] . tel:[phone] [facility], [address] [place] [address] [address], [id number], [place] tel:[phone] [facility] - [place] Encounter for follow-up examination after completed treatment for conditions other than malignant ne 4 Nathaniel ALFONSO RVT, RPVI Robert. [facility] [facility], [address], [place], [id number] , [place]. [phone] Referring Provider: Dakota Armstrong MD, RVT, RPVI, [facility] [facility] [address], [place], [address] . tel:[phone] [facility], [address] [place] [address] [address], [id number], [place] tel:[phone] [facility] [place] Varicose veins of right lower extremity with other complications 4 Nathaniel ALFONSO RVT, RPVI Robert. [address] [facility], [address], [place], [id number] , [place]. tel:[phone] [facility], [address] [place] [address] [address], [id number], tel:[phone] [facility] - [place] No Information 4 Nathaniel ALFONSO RVT, AMBER Duncan. [address] [place] [address], [facility] [place] [place], [id number] , [place]. [phone] [facility], [address] [place] [address] [address], [id number], tel:[phone] CVR - [facility] Chronic venous hypertension (idiopathic) with other complications of bilateral lower extremityPain in right legPain in left legRestless legs syndromeVenous insufficiency (chronic) (peripheral) 4 Nathaniel ALFONSO RVT, AMBER Duncan. [address] [place] [address], [facility] [place], [id number] , [place]. [phone] [facility], [address] [place] [address] [address], [id number], tel:[phone] CVR - [facility] Chronic venous hypertension (idiopathic) with other complications of bilateral lower extremity 4 Nathaniel ALFONSO RVT, RPVI Robert. [address] [place] [address], [facility] [place], [id number] , [place]. tel:[phone] Referring Provider: Dakota Armstrong MD, RVT, AMBER, [address] [place] [address], [facility] [place], [address] . tel:[phone] Family History Family Member Type Diagnosis Age [...]
--- OUTSIDE RECORDS SUMMARY | 2024-11-15 13:35 | XMS_ITS | Continuity of Care Document ---
Author Organization [facility] Address [address] [place] [address] Phone Care Team Providers Care Beer Brewer Name Role Phone Breann ALFONSO, Jasiel Unavailable Unavailable Advance Directives Directive Yes / No Effective Date File Name No Information Encounters Encounter Description Practice Location Reason(s) For Visit Diagnoses Date Provider Providers Copied on Encounter [place] [facility], [address], [place], [id number], [place] tel:[phone] [place] [facility] No Information Breann Weathers. [address], [place], [address], [place]. tel:[phone] Family History Family Member Type Diagnosis Age At Onset No Information Payers Payer name Insurance type Covered libertarian ID Authoriza tion(s) No Information Social History [...]
== END 2024-11-15 15:05 | disposition home or self-care (01) ==
LOC: HO.HWS 13:16
PROVIDERS: PCP Internal Medicine; Visit Provider Advanced Practice Midwife
DX: Z01.419 Encounter for gynecological examination (general) (routine) without abnormal findings (principal); N81.89 Other female genital prolapse
CPT/HCPCS: 99395; 99459

== ENCOUNTER 2024-12-13 12:39 | Outpatient (REF) | payer OTHER, SELFPAY | END 2024-12-13 12:40 | disposition home or self-care (01) | LOC: HO.LNP 12:39 | PROVIDERS: PCP Internal Medicine; Visit Provider Obstetrics & Gynecology | DX: R87.810 Cervical high risk human papillomavirus (HPV) DNA test positive (principal); R87.610 Atypical squamous cells of undetermined significance on cytologic smear of cervix (ASC-US) | CPT/HCPCS: 57454; 81025; 88305 ==

== ENCOUNTER 2024-12-13 12:39 | Outpatient (AMB) | payer OTHER, SELFPAY ==
[2024-12-13 12:42] VITALS: BMI 24.2
--- NOTE | 2024-12-13 12:42 | MHC.OFFVIS ---
Vital Signs 12/13/24 12:42 Height 5 ft 6 in Weight 150 lb BMI 24.2 Intake Visit Reasons: Colposcopy Administrative Assistant Data Entry Required: No Information Interpreted: non-clinical & clinical Commercial Loan Processor: Commercial Loan Processor Present (Aimee Miranda) Accompanied by: Self / Same As Patient Allergies No Known Allergies Allergy (Verified 12/13/24 12:51) HPI Comments Details: Presenting referred from Luz Marina Cox CNM for abnormal Pap showing ascus/HPV high-risk positive, HPV 16/18 negative PFSH Medical History Vitamin D deficiency Allergic rhinitis Pure hypercholesterolemia Surgical History No pertinent past surgical history Social History Housing: House Patient Tobacco Use Status: Never used Tobacco e-Cigarette/Vaping Use: Never Used Second Hand Smoke Exposure: No service: No Current occupational status: employed Current occupational exposures/hazards: No Cognitive needs: No Hearing needs: No Vision needs: No Female Reproductive History Menstrual Age of Menarche: 9 Review of Systems Const All systems reviewed & are unremarkable except as noted in HPI and below Reports as per HPI and Reports no additional complaints GI Reports no additional complaints Reports no additional complaints Physical Exam Vital Signs: BMI result Body Mass Index 24.2 Office Procedures Colposcopy Colposcopy: Pre-Procedure Counseling: Before beginning the procedure, I conducted comprehensive counseling with the patient. We thoroughly discussed the procedure itself, including its details, alternatives, and all associated risks. This included but not limited to the following complications such as bleeding, infection, and injury to the vagina, bladder, and vessels, as well as the potential need for transfusion with all its associated risks. Subsequently, the patient sign the consent. Pap smear result: LSIL. Urine test in office = Negative Procedure: During the procedure, the following steps were performed: A speculum was inserted, and acetic acid was applied. Colposcopy was conducted, allowing visualization of the transformation zone. Acetowhite lesions were identified at the 5+ 7+ 11+ 12+ 1 o'clock position. Cervical biopsies were obtained from the 5+ 7+ 11+ 12+ 1 o'clock position, followed by an endocervical curettage (ECC). Vaginoscopy of the upper vagina revealed no evidence of aceto-white lesions. Hemostasis was achieved using Monsel solution, and the patient tolerated the procedure well. Post-Procedure Instructions: The patient was advised to promptly contact the office or the after hours answering service or go to the emergency room if experiencing a temperature exceeding 100.4?F, abdominal pain, nausea/vomiting, or bleeding. Additionally, the patient was instructed to abstain from vaginal intercourse and bathtub use. The patient confirmed understanding of these instructions. Discharge Instructions: The patient was instructed to schedule a follow-up appointment in 2 weeks for further evaluation and management. Please note that this note was generated using a voice recognition program, and errors may have occurred during air brakes inspector. 61537-Jeiinneeg of cervix including upper vagina with biopsy and ECC Procedure code (CPT) selection complete Results AMB Test Urine AMB Test Urine Negative Last Edit by Goldie Donaldson CMA on 12/13/24 12:52 Assessment & Plan Assessment & Plan (1) ASCUS with positive high risk HPV cervical: Code(s): R87.610 - Atypical squamous cells of undetermined significance on cytologic smear of cervix (ASC-US); R87.810 - Cervical high risk human papillomavirus (HPV) DNA test positive Category: Medical Plan: Discussed with the patient the result of her abnormal pap, its significance, risk of progression, persistence, and regression. the false positive/negative rate of a Pap smear as a screening test in detecting cervical cancer and the indication for a diagnostic test -colposcopy, biopsy, endocervical curettage. The patient verbalized understanding and agreed with the plan, all questions answered. Colposcopy, biopsy /ECC done, see procedure note Orders: Orders AMB Colposcopy Today R87.610 - Atypical squamous cells of undetermined significance on cytologic smear of cervix (ASC-US), R87.810 - Cervical high risk human papillomavirus (HPV) DNA test positive AMB HCG Urine Test Today Z32.02 - Encounter for test, result negative Coding Level of Care Code Procedure Only Diagnoses ASCUS with positive high risk HPV cervical R87.610; R87.810 CPT Codes Colposcopy - CPT: 04301-Efoocsuuj of cervix including upper vagina with biopsy and ECC ([id number])
== END 2024-12-13 13:09 | disposition home or self-care (01) ==
LOC: HO.HWS 12:39
PROVIDERS: PCP Internal Medicine; Visit Provider Obstetrics & Gynecology
DX: R87.610 Atypical squamous cells of undetermined significance on cytologic smear of cervix (ASC-US) (principal); R87.810 Cervical high risk human papillomavirus (HPV) DNA test positive; Z32.02 Encounter for pregnancy test, result negative
CPT/HCPCS: 57454

== ENCOUNTER 2025-01-10 12:37 | Outpatient (AMB) | payer OTHER, SELFPAY ==
--- OUTSIDE RECORDS SUMMARY | 2023-11-25 11:45 | XMS_ITS | Continuity of Care Document ---
Author Organization [facility] Address [address] [place] [address] Phone Care Team Providers Care Estate Planning Paralegal Name Role Phone Breann ALFONSO, Jasiel Unavailable Unavailable Advance Directives Directive Yes / No Effective Date File Name No Information Encounters Encounter Description Practice Location Reason(s) For Visit Diagnoses Date Provider Providers Copied on Encounter [place] [facility], [address], [place], [id number], [place] tel:[phone] [place] [facility] No Information 4 Breann Weathers. [address], [place], [address], [place]. tel:[phone] Family History Family Member Type Diagnosis Age At Onset No Information Payers Payer name Insurance type Covered republican ID Authoriza tion(s) No Information Social History Type Description Quantity Date Captured Comments Sex Female Smoking Status No Information Chief Complaint And Reason For Visit No Information Reason For Referral Reason For Referral No Information History Of Present Illness Encounter Date Complaint History Of Prese nt Illness No Information Functional Status Date Functional Assessmen t No Information Instructions Date Instruction Additional Infor mation No Information Assessments Type Assessment Date No Information Patient Care Teams Name Effective Dates (start - stop) Status Members No Information
--- NOTE | 2025-01-10 12:39 | A.OFFVIS_ITS ---
Intake Visit Reasons: colpo results Accompanied by: Self / Same As Patient Allergies No Known Allergies Allergy (Verified 01/10/25 12:41) HPI Comments Details: Presenting post colpo for follow-up. The patient is doing well with no co mplaints. The pathology showed the following: A. Endocervix, curettage: Fragments of endocervical mucosa and epithelium within normal limits; no atypia identified. B. Cervix, 1 o'clock, biopsy: - Fragments of endocervical mucosa within normal limits; no atypia identified. - No squamous epithelium present. C. Cervix, 5 o'clock, biopsy: Inflamed cervical transformation zone mucosa with reactive changes; no atypia identified. D. Cervix, 7 o'clock, biopsy: Inflamed cervical transformation zone mucosa with reactive changes; no atypia identified E. Cervix, 11 o'clock, biopsy: Inflamed cervical transformation zone mucosa with reactive changes; no atypia identified. F. Cervix, 12 o'clock, biopsy: - Fragments of endocervical mucosa within normal limits; no atypia identified. - No squamous epithelium present. COMMENT: The findings are concordant with the patient's recent Pap/cytology specimen ([id number]; ASCUS with positive HR HPV) - slide reviewed [facility] Medical History Vitamin D deficiency Allergic rhinitis Pure hypercholesterolemia Surgical History No pertinent past surgical history Social History Housing: House Patient Tobacco Use Status: Never used Tobacco e-Cigarette/Vaping Use: Never Used Second Hand Smoke Exposure: No service: No Current occupational status: employed Current occupational exposures/hazards: No Cognitive needs: No Hearing needs: No Vision needs: No Female Reproductive History Menstrual Age of Menarche: 9 Review of Systems Const All systems reviewed & are unremarkable except as noted in HPI and below Reports as per HPI and Reports no additional complaints GI Reports no additional complaints Reports no additional complaints Assessment & Plan Assessment & Plan (1) ASCUS with positive high risk HPV cervical: Code(s): R87.610 - Atypical squamous cells of undetermined significance on cytologic smear of cervix (ASC-US); R87.810 - Cervical high risk human papillomavirus (HPV) DNA test positive Category: Medical Plan: Discussed with the patient the pathology results of the colposcopy biopsies & endocervical curettage. Discussed with the patient the sensitivity specificity, positive and negative predictive value in detecting cervical cancer in addition discussed the regression, persistence and progression rates. Recommended co- testing in 12 months, if cytology and or HPV are abnormal will proceed was colposcopy biopsy and endocervical curettage. Instructions given to the patient to schedule a co test appointment in 1 year. All questions answered the patient verbalized understanding. Coding Level of Care Code Est Pt Level 3 (64521) Diagnoses ASCUS with positive high risk HPV cervical R87.610; R87.810
== END 2025-01-10 12:46 | disposition home or self-care (01) ==
LOC: HO.HWS 12:37
PROVIDERS: PCP Internal Medicine; Visit Provider Obstetrics & Gynecology
DX: R87.610 Atypical squamous cells of undetermined significance on cytologic smear of cervix (ASC-US) (principal); R87.810 Cervical high risk human papillomavirus (HPV) DNA test positive
CPT/HCPCS: 99213

== ENCOUNTER → 2025-01-10 12:37 | Outpatient (BNVA) | payer OTHER, SELFPAY | PROVIDERS: PCP Internal Medicine; Visit Provider Obstetrics & Gynecology | DX: R87.610 Atypical squamous cells of undetermined significance on cytologic smear of cervix (ASC-US) (principal); R87.810 Cervical high risk human papillomavirus (HPV) DNA test positive | CPT/HCPCS: 99212 ==

== ENCOUNTER 2025-02-17 12:19 | Emergency (ER) | payer OTHER, SELFPAY ==
[2025-02-17 12:27] VITALS: BP 119/53; PULSE 76; RESP 16; TEMP 36.9; O2SAT 99; BMI 23.7
--- NOTE | 2025-02-17 12:34 | ED.ABDPAIN ---
HPI - Abdominal Pain General Chief Complaint: Abdominal Pain Stated Complaint: Abd pain Time Seen by Provider: 02/17/25 14:46 Source: patient Mode of arrival: ambulatory Limitations: language barrier History of Present Illness ED Provider: Shilpa Saldivar PA-C HPI narrative: 34 y/o Mandarin [place] speaking female presenting to the ER for evaluation of epigastric abdominal pain that started Friday night after dinner. She reports the pain went away that night but came back the next day. She reports it is burning pain, does not radiate. No N/V/D. Last BM last night and was normal for her. No chest pain or SOB. No fever or chills. No urinary symptoms. LMP 02/04. She has not taken any medications for the pain. Has not eaten anything today. MD elicited complaint: abdominal pain Pertinent past history: none Onset (ago): day(s) (2) Pain Consistency: constant Location: epigastric Severity: moderate Quality: aching and burning Radiation: none Migration to: no migration Exacerbating factors: nothing Relieving factors: nothing Associated symptoms: denies other symptoms Related Data Date of Last Menstrual Period: 02/04/25 Patient : No Home Medications ?Medication ?Instructions ?Recorded ?Confirmed cholecalciferol (vitamin D3) 25 25 mcg PO DAILY 11/15/24 11/15/24 mcg (1,000 unit) capsule Previous Rx's ?Medication ?Instructions ?Recorded budesonide 32 mcg/actuation nasal 2 spray intranasal DAILY PRN 11/24/23 spray allergy symptoms #8.43 mL omeprazole 40 mg capsule,delayed 40 mg PO DAILY #14 caps 02/17/25 release Allergies Allergy/AdvReac Type Severity Reaction Status Date / Time No Known Allergies Allergy Verified 02/17/25 12:32 Review of Systems Review of Systems Yes all other systems are reviewed and are negative PMFSH Past Medical History Medical History Vitamin D deficiency Allergic rhinitis Pure hypercholesterolemia Surgical History No pertinent past surgical history Date of Last Menstrual Period: 02/04/25 Social History Social History Housing: House Patient Tobacco Use Status: Never used Tobacco e-Cigarette/Vaping Use: Never Used Second Hand Smoke Exposure: No Advance Directives: No Advance Directives Information Provided: Yes Do you have a plan to hurt others: No Plan Patient : No service: No Current occupational status: employed Current occupational exposures/hazards: No Cognitive needs: No Hearing needs: No Vision needs: No Physical Exam ED Exam Exam: Appearance: Alert. Oriented X3. No acute distress. Head: normocephalic, atraumatic. Eyes: Pupils equal, round and reactive to light. ENT: Pharynx normal. No tonsillar swelling or exudate. Neck: Normal inspection. Neck supple. CVS: Normal heart rate and rhythm. Pulses normal. Respiratory: No respiratory distress. Breath sounds normal. Abdomen: Soft with mild epigastric tenderness to deep palpation only, no RUQ tenderness. no CVA tenderness bilaterally. Skin: Skin warm and dry. Normal skin color. Normal skin turgor. No rashes. Extremities: No lower extremity edema. No joint swelling. Neuro/psych: Oriented X 3. Grossly normal. Normal speech and cognition. Vital Signs: Vital Signs - 24 hr 02/17/25 12:27 02/17/25 14:00 Temperature 98.5 F 98.0 F Pulse Rate 76 67 Respiratory Rate 16 16 Blood Pressure 119/53 L 113/65 Pulse Oximetry 99 96 Oxygen Delivery Method Room Air Room Air BMI result Body Mass Index 23.7 Course Course Course Narrative: This is an RME: Additional HPI, ROS, PE not included below will be deferred to primary provider. RME assessment and note performed by: Mary Chang PA-C This is a 34-year-old Mandarin speaking female who presents emergency department with concerns of epigastric pain for the last 2 days. Last bowel movement was last night, she does have tenderness palpation in the epigastrium and left upper quadrant, last menstrual period was in February, denies chance of . Patient was seen at an urgent care and was advised to come here for further workup. Vital signs stable. Plan: Labs, further ER evaluation needed. Medical Decision Making Medical Decision Making [facility] Narrative: 34 yo female presenting with epigastric pain x2 days. no N/V/D. no chest pain or SOB. exam with epigastric tenderness given GI cocktail labs unremarkable, normal lipase and LFTs no RUQ tenderness on exam, low suspicion for biliary etiology at this time the etiology of her burning epigastric pain is likely due to GERD or gastritis. will start PPI and dietary modifications stable for d/c home Differential Diagnosis Differential Diagnoses: The differential diagnosis associated with the presentation includes gastritis, GERD, PUD, pancreatitis, biliary colic, cholecystitis Admission/Observation Consideration of admission/observation: Escalation of care including admission/observation considered Lab Data MDM Lab Attestation statement: I reviewed the patient's lab results. no significant metabolic derangement 02/17/25 12:56 02/17/25 12:56 Labs: Lab Results 02/17/25 Range/Units 12:56 WBC 9.0 (4.8-10.8) X10*3/uL RBC 4.69 (4.20-5.50) X10*6/uL Hgb 12.4 (12.0-16.0) g/dl Hct 38.1 (37.0-47.0) % MCV 81.2 (80.0-98.0) fL MCH 26.4 L (27.0-33.0) pg MCHC 32.5 (31.0-35.0) g/dl RDW 13.4 (11.0-16.0) % Plt Count 278 (160-400) X10*3/uL MPV 9.5 (9.4-12.3) fL Immature Gran % (Auto) 0.2 (0.0-0.4) % Neut % (Auto) 68.6 (45-73) % Lymph % (Auto) 22.1 (20-40) % [place] % (Auto) 5.2 (2-11) % Eos % (Auto) 2.9 (0-4) % Baso % (Auto) 1.0 (0-2) % Lymph # (Auto) 2.0 (1.2-4.9) X10*3/uL [place] # (Auto) 0.5 (0.1-1.2) X10*3/uL Eos # (Auto) 0.3 (0.0-0.4) X10*3/uL Baso # (Auto) 0.1 (0.0-0.2) X10*3/uL Abs Immat Gran (auto) 0.02 (0.00-0.03) X10*3/uL Absolute Neuts (auto) 6.2 (2.0-8.3) x10*3/uL Absolute Nucleated RBC 0.000 (0.0-0.012) X10*3/uL Nucleated RBC % (auto) 0.0 (0.0-0.2) /100WBC Sodium 139 (135-145) mmol/L Potassium 3.8 (3.3-5.1) mmol/L Chloride 107 (96-108) mmol/L Carbon Dioxide 25 (22-29) mmol/L Anion Gap 11 L (12-20) BUN 6 L (9-16) mg/dL Creatinine 0.61 (0.5-1.4) mg/dL Estim Creat Clear Calc 120.4 Estimated GFR > 60 Random Glucose 92 (60-115) mg/dL Calcium 8.6 (8.4-10.2) mg/dL Magnesium 2.0 (1.6-2.6) mg/dL Total Bilirubin 0.9 (0.0-1.0) mg/dL Direct Bilirubin 0.3 (0.0-0.5) mg/dL AST 20 (5-31) U/L ALT 21 (0-31) U/L Alkaline Phosphatase 62 (39-117) U/L Total Protein 7.0 (6.5-8.0) g/dL Albumin 4.3 (3.5-5.0) g/dL Lipase 21 (8-78) U/L Beta HCG, Quant < 2 mIU/mL Urine Color Yellow Urine Appearance Clear Urine pH 8.0 (5.0-9.0) Ur Specific [place] Pos <= 1.005 (1.005-1.025) Urine Protein Negative (Neg-Trace) mg/dL Urine Glucose (UA) Negative (Negative) mg/dL Urine Ketones Negative (Negative) mg/dL Urine Blood Negative (Negative) Urine Nitrite Negative (Negative) Ur Leukocyte Esterase Negative (Negative) External Record Review External record reviewed: Prior outpatient labs Tests considered The following testing was considered but not selected: considered CT scan of the abdomen Prescription Management I considered prescription management with: Pain Medication and Other (antacid, PPI, H2RB) Social Determinants Patient?s care significantly limited by Social Determinants of Health including: Other Social Determinant of Health (language barrier) Medications Administered Discontinued Medications Generic Name Dose Route Start Last Admin Trade Name Freq PRN Reason Stop Dose Admin Al Hydroxide/Mg Hydroxide 30 ml 02/17/25 14:47 02/17/25 15:34 Magnesium Hydrox/Alum Hydrox 30 Ml Oral.Susp PO 02/17/25 14:48 30 ml ONCE ONE Administration Belladonna Alkaloids/Phenobarbital 10 ml 02/17/25 14:47 02/17/25 15:34 Phenobarb/Hyoscy/Atropine/Scop 10 Ml Elixir PO 02/17/25 14:48 10 ml ONCE ONE Administration Lidocaine HCl 15 ml 02/17/25 14:47 02/17/25 15:34 Lidocaine Hcl Viscous 2 % 15 Ml Solution MUCOUS MEM 02/17/25 14:48 15 ml ONCE ONE Administration Critical Care Time Critical Care Time Critical Care Time: No Discharge Plan Discharge Clinical Impression: Gastritis Qualifiers: Gastritis type: unspecified gastritis Chronicity: acute Gastritis bleeding: without bleeding Qualified Code(s): K29.00 - Acute gastritis without bleeding Patient Disposition: Home, Self-Care Instructions: Gastritis (ED), Diet for Stomach Ulcers and Gastritis (ED) Additional Instructions: Your lab workup today was unremarkable. Your pain is most likely due to gastritis which is and irritation and inflammation of your stomach lining. Start taking the prescribed medication as directed for this. Stick to a bland diet. Avoid foods high in acid, avoid alcohol and NSAID medications like Aleve, Motrin, Advil or ibuprofen. Follow up with your doctor as needed. If you develop new or worsening symptoms call 911 or come back to the ER for further evaluation. Prescriptions: New omeprazole 40 mg capsule,delayed release(DR/EC) 40 mg PO DAILY Qty: 14 0RF No Action budesonide 32 mcg/actuation spray,non-aerosol 2 spray intranasal DAILY PRN (Reason: allergy symptoms) Qty: 8.43 5RF Rx Instructions: administer into each nostril cholecalciferol (vitamin D3) 25 mcg (1,000 unit) capsule 25 mcg PO DAILY Referrals: Chavez Nash MD [Primary Care Provider, Internal Medicine] Print Language: Mandarin [place]
[2025-02-17 13:01] LABS: MANUAL DIFF FLAG NO
[2025-02-17 13:03] LABS: Appearance Urine Clear; Glucose Urine UA Negative (Negative); Hematocrit 38.1 % (37.0-47.0); Hemoglobin 12.4 g/dl (12.0-16.0); Imm Gran Abs Auto 0.02 X10*3/uL (0.00-0.03); Imm Gran Pct Auto 0.2 % (0.0-0.4); Lymphocytes Absolute Auto 2.0 X10*3/uL (1.2-4.9); Mean Corpuscular HGB Conc 32.5 g/dl (31.0-35.0); Mean Corpuscular Hemoglobin 26.4 pg (27.0-33.0); Mean Corpuscular Volume 81.2 fL (80.0-98.0); NRBC Abs Auto 0.000 X10*3/uL (0.0-0.012); NRBC Pct Auto 0.0 /100WBC (0.0-0.2); PH 8.0 (5.0-9.0); Platelet Count 278 X10*3/uL (160-400); Red Blood Count 4.69 X10*6/uL (4.20-5.50); Specific Gravity - Urine <= 1.005 (1.005-1.025); White Blood Count 9.0 X10*3/uL (4.8-10.8)
[2025-02-17 13:27] LABS: Alanine Aminotransferase 21 U/L (0-31); Albumin Level 4.3 g/dL (3.5-5.0); Alkaline Phosphatase 62 U/L (39-117); Anion Gap 11 (12-20); Aspartate Amino Transferase 20 U/L (5-31); Blood Urea Nitrogen 6 mg/dL (9-16); Calcium 8.6 mg/dL (8.4-10.2); Carbon Dioxide 25 mmol/L (22-29); Chloride 107 mmol/L (96-108); Creatinine Clr Calc Pharmacy 120.4; Estimated Glomerular Filt Rate > 60; Lipase 21 U/L (8-78); Magnesium 2.0 mg/dL (1.6-2.6); Potassium 3.8 mmol/L (3.3-5.1); Sodium 139 mmol/L (135-145); Total Protein 7.0 g/dL (6.5-8.0)
[2025-02-17 14:00] VITALS: BP 113/65; PULSE 67; RESP 16; TEMP 36.7; O2SAT 96
[2025-02-17] MEDS: PHENobarb/Hyoscy/Atropine/Scop 10 ML ELIXIR PO (15:34)
[2025-02-17] MEDS: Lidocaine HCl Viscous 2 % 15 ML SOLUTION MUCOUS MEM (15:34)
[2025-02-17] MEDS: Magnesium Hydrox/Alum Hydrox 30 ML ORAL.SUSP PO (15:34)
[2025-02-17 16:20] VITALS: BP 113/65; PULSE 67; RESP 16; TEMP 36.7; O2SAT 96
== END 2025-02-17 16:20 | disposition home or self-care (01) ==
PROVIDERS: Physician Assistant Medical; Emergency Provider Emergency Medicine; PCP Internal Medicine
DX: K29.00 Acute gastritis without bleeding (principal); R10.13 Epigastric pain
CPT/HCPCS: 36415; 80048; 80076; 81003; 83690; 83735; 84702; 85025; 99283